=== PATIENT | female | born 1975 | race Native Hawaiian/Other Pacific Islander ===

== ENCOUNTER 2016-05-30 08:59 | Outpatient (CLI) | payer BC ==
[~2016-05-30 08:59] MED LIST: DULO60CA2 PO; [UNRECOGNIZED DRUG - OTHER] PO
== END 2016-05-30 09:59 | disposition home or self-care (01) ==
LOC: MAMMO 08:59
DX: Z12.31 Encounter for screening mammogram for malignant neoplasm of breast (principal)
CPT/HCPCS: G0202-TC

== ENCOUNTER 2021-01-21 10:01 | Outpatient (CLI) | payer BC ==
[~2021-01-21 10:01] MED LIST changes: +LEXAPRO10 MG PO
== END 2021-01-21 21:13 | disposition home or self-care (01) ==
LOC: RAD 10:01
PROVIDERS: ATTEND Physician Assistant
DX: Z86.16 Personal history of COVID-19 (principal)

== ENCOUNTER 2023-07-07 13:17 | Outpatient (CLI) | payer BC | END 2023-07-07 19:09 | disposition home or self-care (01) | LOC: CT 13:17 | PROVIDERS: ATTEND Physician Assistant | DX: R06.02 Shortness of breath (principal); R07.89 Other chest pain | CPT/HCPCS: Q9963 ==